=== PATIENT | male | born 1940 | race Caucasian/White ===

== ENCOUNTER 2016-05-31 15:54 | Emergency (ER) | payer MEDICARE ==
[~2016-05-31] VITALS: Ht 167.6 cm; Wt 68.2 kg
[2016-05-31 16:47] LABS: GLUCOSE,POINT OF CARE 143 MG/DL (70-110)
[2016-05-31] MEDS ORDERED: SPIR25 PO (17:01)
[2016-05-31] MEDS ORDERED: QUET25TA PO (17:01)
[2016-05-31] MEDS ORDERED: DOXY100C PO (17:01)
[2016-05-31] MEDS ORDERED: MOM30 PO (17:01)
[2016-05-31] MEDS ORDERED: DSS100 PO (17:01)
[2016-05-31] MEDS ORDERED: ACET-784 PO ×2 (17:01)
[2016-05-31] MEDS ORDERED: BISA5TAB12 PO (17:01)
[2016-05-31] MEDS ORDERED: METHI5 PO (17:01)
[2016-05-31] MEDS ORDERED: FE RC (17:01)
[2016-05-31] MEDS ORDERED: ONDA4 PO (17:01)
[2016-05-31] MEDS ORDERED: FAMO20 PO (17:01)
[2016-05-31] MEDS ORDERED: VALS80TA2 PO (17:01)
[2016-05-31 17:27] LABS: BASOPHILS % (AUTO) 0.5 % (0.0-2.0); EOSINOPHILS % (AUTO) 2.3 % (1.0-6.0); HEMATOCRIT 38.3 % (41-53); HEMOGLOBIN 12.4 g/dL (13.5-17.5); LYMPHOCYTES # (AUTO) 2.4 K/uL (1.0-4.8); LYMPHOCYTES % (AUTO) 29.8 % (22.0-44.0); MEAN CORPUSCULAR HEMOGLOBIN 28.3 pg (26.0-34.0); MEAN CORPUSCULAR HGB CONC 32.4 G/dL (31.0-37.0); MEAN CORPUSCULAR VOLUME 87 fL (80-100); MONOCYTES # (AUTO) 1.1 K/uL (0.1-1.0); MONOCYTES % (AUTO) 14.2 % (2.0-9.0); NEUTROPHILS # (AUTO) 4.3 K/uL (1.8-7.7); NEUTROPHILS % (AUTO) 53.2 % (40.0-70.0); PLATELET COUNT (AUTO) 246 K/uL (150-450); RED BLOOD CELL COUNT(AUTO) 4.38 MIL/uL (4.50-5.90); RED CELL DISTRIBUTION WIDTH 17.1 % (11.5-14.5); WHITE BLOOD COUNT (AUTO) 8.1 K/uL (4.5-11.0)
[2016-05-31 17:28] LABS: RBC MORPHOLOGY COMMENT ABNORMAL RBC MORPH
[2016-05-31 17:48] LABS: ANION GAP 9 mmol/L (8-16); CALCIUM, TOTAL 8.6 mg/dL (8.8-10.5); CARBON DIOXIDE 30 mmol/L (22-29); CHLORIDE 99 mmol/L (98-107); CREATININE 2.23 mg/dL (0.60-1.30); GLOMERULAR FILTR. RATE CALC 29 mL/min (>60); POTASSIUM 3.6 mmol/L (3.5-5.1); SODIUM SERUM 138 mmol/L (136-145); UREA NITROGEN, BLOOD 53 mg/dL (7-18)
[2016-05-31 17:54] LABS: ALANINE AMINOTRANSFERASE 26 U/L (12-78); ALBUMIN 2.8 g/dL (3.4-5.0); ASPARTATE AMINOTRANSFERASE 28 U/L (15-37); TOTAL PROTEIN, SERUM 8.5 g/dL (6.4-8.2)
[2016-05-31] MEDS: LORazepam 1 MG TABLET PO ONE ×2 (18:27→20:39)
[2016-05-31 20:34] VITALS: BP 130/57
== END 2016-05-31 20:44 | disposition home or self-care (01) ==
LOC: EMS 15:57
DX: R45.1 Restlessness and agitation (principal); F03.90 Unspecified dementia, unspecified severity, without behavioral disturbance, psychotic disturbance, mood disturbance, and anxiety; I48.91 Unspecified atrial fibrillation; Z86.73 Personal history of transient ischemic attack (TIA), and cerebral infarction without residual deficits
CPT/HCPCS: 36415; 80053; 82962; 85025; 99284; G0480